=== PATIENT | female | born 1960 | race Caucasian/White ===

== ENCOUNTER 2020-07-04 17:03 | Emergency (ER) | payer BC, OTHER, SELFPAY ==
[2020-07-04 17:04] VITALS: BP 180/104; PULSE 67; RESP 15; TEMP 36.8; O2SAT 99; BMI 44.6
[2020-07-04 17:05] VITALS: BP 180/104; PULSE 67; RESP 15; TEMP 36.8; O2SAT 99
[2020-07-04 19:04] VITALS: PULSE 66
[2020-07-04 19:57] LABS: Absolute Lymphocyte Count 1.82 X10^3/uL (0.83-4.51); Absolute Neutrophil Count 5.2 X10^3/uL (2.0-7.7); Basophil# 0.05 X10^3/uL; Basophil% 0.6 % (0-1); Eosinophil# 0.12 X10^3/uL; Eosinophils% 1.6 % (0-5); Hematocrit 43.5 % (37-47); Hemoglobin 14.4 g/dL (12.0-15.0); Lymphocyte # 1.82 X10^3/ul (0.83-4.51); Lymphocyte % 23.6 % (19-41); Mean Corp Hgb Conc 33.1 g/dL (32-36); Mean Corpuscular Hgb 32.7 pg (27.0-32.0); Mean Corpuscular Volume 98.6 fL (81-99); Mean Platelet Vol. 9.9 fl (6.2-12.0); Monocyte# 0.45 X10^3/uL; Monocyte% 5.8 % (0-10); NRBC Flagged by Analyzer 0 % (0-5); Neutrophil # 5.21 X10^3/uL (2.7-7.7); Neutrophil % 67.6 % (47-70); Platelet Count 304 K/mm3 (150-450); RBC Distribution Width CV 12.9 % (11.6-14.6); RBC Distribution Width SD 46.7 fl (35.1-43.9); Red Blood Count 4.41 M/mm3 (4.2-5.4); White Blood Count 7.7 K/mm3 (4.4-11.0)
[2020-07-04 20:05] VITALS: BP 177/90; PULSE 69; RESP 18; TEMP 36.8; O2SAT 99
[2020-07-04 20:15] LABS: ALB/GLOB Ratio 0.8 RATIO (0.9-2.4); AST(SGOT) 34 U/L (15-37); Alanine Aminotransfer ALT/SGPT 63 U/L (13-56); Albumin, Serum 3.6 g/dL (3.2-5.0); Alkaline Phosphatase 66 U/L (45-117); Anion Gap 7 (5-15); BUN 11 mg/dL (7-18); BUN/Creat Ratio 11.8 RATIO (10-20); Calcium,Total 9.5 mg/dL (8.5-10.1); Chloride 103 mmol/L (98-107); Creatinine, Serum 0.93 mg/dL (0.55-1.02); EST Glomerular Filtration Rate 65 mL/min (>60); Est Glom Filt Rate - Afr Amer 79 mL/min (>60); Estimated Creatinine Clearance 56.24 ml/min; Globulin 4.8 g/dL (2.2-4.2); Glucose 84 mg/dL (74-106); Potassium 4.8 mmol/L (3.5-5.1); Protein, Total 8.4 g/dL (6.4-8.2); Sodium Level 136 mmol/L (136-145)
--- NOTE | 2020-07-04 20:25 | CT_ITS ---
EXAM: CT NECK WITH INTRAVENOUS CONTRAST : 1960 CLINICAL INDICATION: Soy's angina TECHNIQUE: Helically acquired images were obtained of the neck with intravenous contrast. This CT exam was performed using one or more of the following dose reduction techniques: automated exposure control, adjustment of the mA and/or kV according to patient size, and/or use of iterative reconstruction technique. This report was created using [employer] report generation technology. CONTRAST: IV 75mL Isovue-300 COMPARISON: None. FINDINGS: BRAIN AND EXTRA-AXIAL SPACES: There is no mass or fluid collection. NASOPHARYNX: Unremarkable. SUPRAHYOID NECK: Unremarkable. Oropharynx, oral cavity, parapharyngeal space and retropharyngeal space are unremarkable. INFRAHYOID NECK: Unremarkable. The larynx, hypopharynx and supraglottis are unremarkable. SUBMANDIBULAR/PAROTID GLANDS: Unremarkable. Glands are normal in size. THYROID: Unremarkable. No enlarged or calcified nodules. BONES/JOINTS: No acute fracture. SOFT TISSUES: Unremarkable. VASCULATURE: No acute findings. LYMPH NODES: There are small lymph nodes in the submandibular and submental regions. The largest node on the left measures 1.3 x 0.9 cm. LUNG APICES: Unremarkable as visualized. OTHER FINDINGS: There is no edema. CT/Soft Tissue Neck WITH Contrast IMPRESSION: Scattered adenopathy in the neck which may be reactive or inflammatory. There is no mass or fluid collection. The airway is patent. Individualized dose optimization techniques were used for this CT. at 2102 Reported and signed by: Mark Aguilar MD Electronically Signed: Mark Aguilar MD at 21:01 EDT Tel , Service support ,
[2020-07-04 23:40] VITALS: PULSE 87; RESP 16; O2SAT 97
--- NOTE | 2020-07-05 00:54 | EX.ED.DYSGE1 ---
HPI History of Present Illness Chief Complaint: Cellulitis Informant: patient Onset/Context/Timing Onset: Yesterday Context: Gradual Onset Timing: Continuous Quality: Dull Location: Sublingual Worsened by: Nothing Relieved by: Nothing Narrative Narrative: Patient presents with swelling and redness to her jaw that began yesterday. Patient states it is gradually getting worse. Patient states the pain is over the sublingual area. Patient describes the pain is dull. Patient also states it feels like it is itching. Patient states nothing makes it worse and nothing makes it better. Patient denies any difficulty breathing or difficulty swallowing. Patient states she went to an urgent care but was referred to the emergency department. [facility] Medical History Hypertension Home Medications amoxicillin-pot clavulanate 875 mg PO Q12H #20 tablet 07/04/20 [Rx Last Taken Unknown] enalapril maleate [Vasotec] 5 mg PO DAILY 07/04/20 [History Last Taken Unknown] epinephrine 0.3 ml IM PRN PRN 07/04/20 [History Last Taken Unknown] levothyroxine [Synthroid] 150 mcg PO DAILY 07/04/20 [History Last Taken Unknown] Allergy/AdvReac Type Severity Reaction Status Date / Time bee pollen Allergy Anaphylaxis Verified 07/04/20 17:06 Surgical History History of thyroidectomy Social History Smoking Status: Never smoker ROS ROS ED Constitutional Constitutional ED: Denies chills or fever(s) Eyes Eyes: Denies blurry vision or change in vision ENT ENT ED: Denies rhinorrhea or sore throat Cardiovascular Cardiovascular: Denies chest pain or palpitations Respiratory/Chest Respiratory/Chest: Denies cough or dyspnea Gastrointestinal Gastrointestinal: Denies nausea or vomiting Genitourinary Genitourinary ED: Denies dysuria or hematuria Musculoskeletal Musculoskeletal: Reports neck pain; Denies back pain Integumentary Reports rash; Denies Abrasions Neurologic Neurologic: Denies headache(s) or weakness Allergic/Immunologic Allergic/Immunologic ED: Denies urticaria EXAM Physical Exam Const Vital Signs: 07/04/20 17:04 07/04/20 17:05 07/04/20 19:04 Temperature 98.3 F 98.3 F Temperature Source Temporal Temporal Pulse Rate 67 67 66 Respiratory Rate 15 15 Blood Pressure 180/104 H 180/104 H Blood Pressure Mean 129 129 Pulse Ox 99 99 Oxygen Delivery Method Room Air Room Air 07/04/20 20:05 07/04/20 23:40 Temperature 98.2 F Temperature Source Temporal Pulse Rate 69 87 Respiratory Rate 18 16 Blood Pressure 177/90 H Blood Pressure Mean 119 Pulse Ox 99 97 Oxygen Delivery Method Room Air Positive well nourished, well developed and obese General Appearance ED: well developed Nutritional Appearance: obese HEENT Reports moist mucous membranes HEENT Narrative: There are couple dental caries noted over the lower first premolars bilaterally. There is no tenderness. There is no gingival edema or erythema. Oropharynx is clear. Airway is patent. There is no trismus. Neck supple and no JVD Neck Narrative: There is some mild erythema in the sublingual area. There is questionable fullness in this area. There is no induration. There is no evidence of any abscess. Resp normal respiratory effort and clear to auscultation bilaterally Cardio regular rate and regular rhythm GI normal to inspection, nondistended, normoactive bowel sounds and non-tender Palpation: soft Neuro oriented x3, CN's II-XII intact bilaterally and no sensory deficits noted Sensorium / Orientation: alert Motor Exam: strength 5/5 throughout Psych mental status grossly normal MDM MDM MDM Narrative Medical decision making narrative: Patient was given a dose of Unasyn here. CBC and comprehensive metabolic profile were within normal limits. Lactate was normal. CT scan of the soft tissue neck was obtained. There is no evidence of any abscess or airway compromise. There is some mild lymphadenopathy. Patient was advised of her findings. Patient was given a prescription for Augmentin. Patient was instructed to return if worse in any way. Patient was instructed to follow-up with her primary care physician in 3 to 5 days. Patient and spouse understood and were agreeable with the plan. All questions were answered. Lab Data Attestation: I reviewed the patient's lab results. Labs: Laboratory Results - last 24 hr 07/04/20 07/04/20 07/04/20 17:10 19:34 19:34 WBC Cancelled Corrected WBC Cancelled RBC Cancelled Hgb Cancelled Hct Cancelled MCV Cancelled MCH Cancelled MCHC Cancelled RDW Std Deviation Cancelled RDW Coeff of Luis Miguel Cancelled Plt Count Cancelled MPV Cancelled Immature Gran % (Auto) Cancelled Neut % (Auto) Cancelled Lymph % (Auto) Cancelled Brantley % (Auto) Cancelled Eos % (Auto) Cancelled Baso % (Auto) Cancelled Absolute Neuts (auto) Cancelled Absolute Lymphs (auto) Cancelled Total Counted Cancelled Neutrophils % (Manual) Cancelled Band Neutrophils % Cancelled Lymphocytes % (Manual) Cancelled Monocytes % (Manual) Cancelled Eosinophils % (Manual) Cancelled Basophils % (Manual) Cancelled Metamyelocytes % Cancelled Myelocytes % Cancelled Promyelocytes % Cancelled Blast Cells % Cancelled Plasma Cell % (Manual) Cancelled Other Cells % Cancelled Nucleated RBC % Cancelled Nucleated RBCs/100 WBC Cancelled Differential Comment Cancelled Diff Path Review Cancelled Hypersegmented Neuts Cancelled Atypical Lymphocytes Cancelled Reactive Lymphocytes Cancelled Smudge Cells Cancelled Toxic Granulation Cancelled Toxic Vacuolation Cancelled Dohle Bodies Cancelled Дмитрий Rods Cancelled Platelet Estimate Cancelled Plt Morphology Comment Cancelled RBC Morphology Cancelled Polychromasia Cancelled Hypochromasia Cancelled Poikilocytosis Cancelled Basophilic Stippling Cancelled Anisocytosis Cancelled Microcytosis Cancelled Macrocytosis Cancelled Spherocytes Cancelled Sickle Cells Cancelled Target Cells Cancelled Tear Drop Cells Cancelled Ovalocytes Cancelled Stomatocytes Cancelled Razo-Sylvanite Bodies Cancelled Eduar Cells Cancelled Bite Cells Cancelled Crenated Cell Cancelled Acanthocytes (Spur) Cancelled Rouleaux Cancelled Schistocytes Cancelled Sodium 136 Potassium 4.8 Chloride 103 Carbon Dioxide 26.0 Anion Gap 7 BUN 11 Creatinine 0.93 Estim Creat Clear Calc 56.24 Est GFR (MDRD) Af Amer 79 Est GFR (MDRD) Non-Af 65 BUN/Creatinine Ratio 11.8 Glucose 84 Lactic Acid 1.0 Calcium 9.5 Total Bilirubin 0.70 AST 34 ALT 63 H Alkaline Phosphatase 66 Total Protein 8.4 H Albumin 3.6 Globulin 4.8 H Albumin/Globulin Ratio 0.8 L 07/04/20 19:34 WBC 7.7 Corrected WBC RBC 4.41 Hgb 14.4 Hct 43.5 MCV 98.6 MCH 32.7 H MCHC 33.1 RDW Std Deviation 46.7 H RDW Coeff of Luis Miguel 12.9 Plt Count 304 MPV 9.9 Immature Gran % (Auto) 0.800 Neut % (Auto) 67.6 Lymph % (Auto) 23.6 Brantley % (Auto) 5.8 Eos % (Auto) 1.6 Baso % (Auto) 0.6 Absolute Neuts (auto) 5.2 Absolute Lymphs (auto) 1.82 Total Counted Neutrophils % (Manual) Band Neutrophils % Lymphocytes % (Manual) Monocytes % (Manual) Eosinophils % (Manual) Basophils % (Manual) Metamyelocytes % Myelocytes % Promyelocytes % Blast Cells % Plasma Cell % (Manual) Other Cells % Nucleated RBC % 0 Nucleated RBCs/100 WBC Differential Comment Diff Path Review Hypersegmented Neuts Atypical Lymphocytes Reactive Lymphocytes Smudge Cells Toxic Granulation Toxic Vacuolation Dohle Bodies Дмитрий Rods Platelet Estimate Plt Morphology Comment RBC Morphology Polychromasia Hypochromasia Poikilocytosis Basophilic Stippling Anisocytosis Microcytosis Macrocytosis Spherocytes Sickle Cells Target Cells Tear Drop Cells Ovalocytes Stomatocytes Razo-Sylvanite Bodies [place] Cells Bite Cells Crenated Cell Acanthocytes (Spur) Rouleaux Schistocytes Sodium Potassium Chloride Carbon Dioxide Anion Gap BUN Creatinine Estim Creat Clear Calc Est GFR (MDRD) Af Amer Est GFR (MDRD) Non-Af BUN/Creatinine Ratio Glucose Lactic Acid Calcium Total Bilirubin AST ALT Alkaline Phosphatase Total Protein Albumin Globulin Albumin/Globulin Ratio Radiography Diagnostic Testing: Radiology Impression Soft Tissue Neck CT 07/04/20 20:25 IMPRESSION: Scattered adenopathy in the neck which may be reactive or inflammatory. There is no mass or fluid collection. The airway is patent. Individualized dose optimization techniques were used for this CT. at 2102 Reported and signed by: Mark Aguilar MD Electronically Signed: Mark Aguilar MD at 21:01 EDT Tel , Service support , Discharge Plan Triage Chief Complaint: Cellulitis ED Provider: Arnie Hoffman Dx/Rx/DC Orders Clinical Impression: Cellulitis Instructions: ED Cellulitis Prescriptions: New amoxicillin-pot clavulanate [amoxicillin-pot clavulanate] 875 MG tablet 875 mg PO Q12H Qty: 20 RF: 0 No Action enalapril maleate [Vasotec] 5 mg Tablet 5 mg PO DAILY RF: 0 levothyroxine [Synthroid] 150 mcg Tablet 150 mcg PO DAILY RF: 0 epinephrine 0.3 mg/0.3 mL Auto-Injector 0.3 ml IM PRN PRN (Reason: Anaphylaxis) RF: 0 Primary Care Provider: Luciano Holder Referrals: Luciano Holder DO [Primary Care Provider] - 3-5 Days Disposition Disposition: Home, self care Discharge Date/Time: 07/04/20 23:41
== END 2020-07-04 23:41 | disposition home or self-care (01) ==
PROVIDERS: Emergency Provider Emergency Medicine; PCP Student in an Organized Health Care Education/Training Program
DX: K12.2 Cellulitis and abscess of mouth (principal); I10 Essential (primary) hypertension; Z79.899 Other long term (current) drug therapy
CPT/HCPCS: 36415; 70491; 80053; 83605; 85025; 87040; 96365; 99283; J7050; Q9967; A4216; J0295

== ENCOUNTER 2021-01-29 08:11 | Emergency (ER) | payer BC, OTHER, SELFPAY ==
[2021-01-29 08:13] VITALS: BP 186/104; PULSE 89; RESP 14; TEMP 36.6; O2SAT 97; BMI 46.1
--- NOTE | 2021-01-29 08:22 | RAD_ITS ---
STUDY: X-RAY CHEST REASON FOR EXAM: Female, 60 years old. Cp TECHNIQUE: Single AP portable view of the chest. COMPARISON: None. FINDINGS: EKG electrodes are seen. Focal infiltrate in the peripheral lateral aspect of the left upper lobe. There is no demonstrated pleural abnormality. Normal size heart. Normal mediastinum and enzo. Normal visualized pulmonary arteries. There is atherosclerotic tortuosity of the aortic arch and descending thoracic aorta. There are diffuse degenerative changes of the visualized thoracic spine. Normal visualized ribs, clavicles, and shoulders. There is no demonstrated abnormality of the visualized soft tissue structures of the upper abdomen. RAD/Chest 1 View (Portable) IMPRESSION: Focal infiltrate is seen in the lateral aspect of the left upper lobe. Radiographic follow-up is recommended. Electronically Signed: Jaren Owens MD at 9:05 EST , Service support ,
--- NOTE | 2021-01-29 08:23 | EKG12_ITS ---
Test Reason : CHEST OTHER Blood Pressure : / mmHG Vent. Rate : 078 BPM Atrial Rate : 078 BPM P-R Int : 144 ms QRS Dur : 090 ms QT Int : 370 ms P-R-T Axes : 035 -01 039 degrees QTc Int : 421 ms Normal sinus rhythm Normal ECG Confirmed by CARINA ENNIS, JENARO ([id number]), web content editor MAGDI DUNAWAY ([id number]) on 02/03/2021 9:30:48 AM Referred By: BEVERLY Confirmed By:JENARO LIM MD
--- NOTE | 2021-01-29 08:23 | EX.ED.DYSGE1 ---
HPI History of Present Illness Chief Complaint: Chest Other Informant: patient Onset/Context/Timing Onset: Today Current Severity: Mild Maximum Severity: Moderate Narrative Narrative: Patient presents with left back and lateral chest pain. Patient states around 3 AM this morning she woke with pain in the lower portion of her thoracic spine and over the left posterior ribs. Pain is now traveling around the lateral side of her chest. Pain is worse with a deep breath. She does not feel short of breath. No recent URI symptoms or cough. No personal or family history of blood clots. PFSH PFSH Medical History Hypertension no medical history Home Medications enalapril maleate [Vasotec] 5 mg PO DAILY 07/04/20 [History Last Taken Unknown] epinephrine 0.3 ml IM PRN PRN 07/04/20 [History Last Taken Unknown] levothyroxine [Synthroid] 175 mcg PO DAILY 07/04/20 [History Last Taken Unknown] levofloxacin 750 mg PO DAILY #4 tab 01/29/21 [Rx Last Taken Unknown] Allergy/AdvReac Type Severity Reaction Status Date / Time bee pollen Allergy Anaphylaxis Verified 01/29/21 08:16 Surgical History History of thyroidectomy Social History Smoking Status: Never smoker ROS ROS ED Constitutional Constitutional ED: Denies chills or fever(s) Eyes Eyes: Denies change in vision ENT ENT ED: Denies sore throat Cardiovascular Cardiovascular: Reports chest pain Respiratory/Chest Respiratory/Chest: Denies cough or dyspnea Gastrointestinal Gastrointestinal: Denies abdominal pain, diarrhea, nausea or vomiting Genitourinary Genitourinary ED: Denies dysuria Musculoskeletal Musculoskeletal: Reports back pain Integumentary Denies rash Neurologic Neurologic: Denies headache(s) or weakness Allergic/Immunologic Allergic/Immunologic ED: Denies urticaria EXAM Physical Exam Const Vital Signs: 01/29/21 08:13 01/29/21 08:25 01/29/21 08:35 Temperature 97.8 F Temperature Source Temporal Pulse Rate 89 81 Respiratory Rate 14 25 H Respiratory Effort Normal Blood Pressure 186/104 H 166/83 H Blood Pressure Mean 131 110 Pulse Ox 97 96 Oxygen Delivery Method Room Air Room Air Positive well nourished and well developed General Appearance ED: well developed HEENT Reports moist mucous membranes Eyes PERRL and EOMs intact bilaterally Chest Wall inspection of chest normal and palpation of chest normal Resp normal respiratory effort and clear to auscultation bilaterally Cardio regular rate and regular rhythm GI non-tender Palpation: soft Extremity normal to inspection Neuro oriented x3 Sensorium / Orientation: alert Psych mental status grossly normal Skin no rashes or lesions noted MDM MDM MDM Narrative Medical decision making narrative: EKG, chest x-ray, lab work obtained. Lab Data Attestation: I reviewed the patient's lab results. Labs: Laboratory Results - last 24 hr 01/29/21 01/29/21 01/29/21 08:30 08:30 08:30 WBC 9.6 RBC 4.20 Hgb 13.3 Hct 40.2 MCV 95.7 MCH 31.7 MCHC 33.1 RDW Std Deviation 48.6 H RDW Coeff of Luis Miguel 13.9 Plt Count 279 MPV 9.5 Immature Gran % (Auto) 0.700 Neut % (Auto) 74.2 H Lymph % (Auto) 17.2 L [place] % (Auto) 6.3 Eos % (Auto) 1.2 Baso % (Auto) 0.4 Absolute Neuts (auto) 7.1 Absolute Lymphs (auto) 1.66 Nucleated RBC % 0 D-Dimer Quant (PE/DVT) 0.75 H* Sodium 137 Potassium 3.9 Chloride 106 Carbon Dioxide 26.0 Anion Gap 5 BUN 9 Creatinine 0.85 Estim Creat Clear Calc 61.54 Est GFR (MDRD) Af Amer 88 Est GFR (MDRD) Non-Af 72 BUN/Creatinine Ratio 10.6 Glucose 114 H Calcium 9.4 Troponin I High Sens 6 Radiography Chest X-Ray - ED: 1 View, Read by ED Physician and Left Infiltrate Diagnostic Testing: Clinical Impression(s) from Imaging Studies Chest X-Ray 01/29/21 08:22 IMPRESSION: Focal infiltrate is seen in the lateral aspect of the left upper lobe. Radiographic follow-up is recommended. Electronically Signed: Jaren Owens MD at 9:05 EST , Service support , Chest CTA 01/29/21 09:08 IMPRESSION: No evidence of pulmonary embolism. Focal nodular infiltrate in the peripheral lateral aspect of the left upper lobe as described. Radiographic follow-up is recommended following therapy. Electronically Signed: Jaren Owens MD at 9:45 EST , Service support , EKG Initial EKG: Attestation: I personally reviewed and interpreted this EKG as follows: Interpretation: Sinus Rhythm (Sinus at 78 with no acute ischemia.) Treatment and Re-Evaluation Comments:: Chest x-ray shows left-sided wedge-shaped infiltrate. Blood work reviewed and does reveal an elevated D-dimer at 0.75. In light of this CT of the chest is obtained that confirms infiltrate but no evidence of embolism. EKG reveals no ischemia and troponin is negative. Test results discussed with patient and at bedside. She will be treated with a course of Levaquin. Return instructions provided. Discharge Plan Triage Chief Complaint: Chest Other ED Provider: Divina Mcguire Dx/Rx/DC Orders Clinical Impression: Pneumonia Instructions: ED Pneumonia (Adult) Prescriptions: New levofloxacin 750 mg tablet 750 mg PO DAILY Qty: 4 RF: 0 No Action enalapril maleate [Vasotec] 5 mg Tablet 5 mg PO DAILY RF: 0 levothyroxine [Synthroid] 150 mcg Tablet 175 mcg PO DAILY RF: 0 epinephrine 0.3 mg/0.3 mL Auto-Injector 0.3 ml IM PRN PRN (Reason: Anaphylaxis) RF: 0 Primary Care Provider: Luciano Holder Referrals: Luciano Holder DO [Primary Care Provider] - 1-2 Weeks Disposition Disposition: Home, Self Care
[2021-01-29 08:25] VITALS: BP 166/83; PULSE 81; RESP 25; O2SAT 96
[2021-01-29 08:47] LABS: Absolute Lymphocyte Count 1.66 X10^3/uL (0.83-4.51); Absolute Neutrophil Count 7.1 X10^3/uL (2.0-7.7); Basophil# 0.04 X10^3/uL; Basophil% 0.4 % (0-1); Eosinophil# 0.12 X10^3/uL; Eosinophils% 1.2 % (0-5); Hematocrit 40.2 % (37-47); Hemoglobin 13.3 g/dL (12.0-15.0); Lymphocyte # 1.66 X10^3/ul (0.83-4.51); Lymphocyte % 17.2 % (19-41); Mean Corp Hgb Conc 33.1 g/dL (32-36); Mean Corpuscular Hgb 31.7 pg (27.0-32.0); Mean Corpuscular Volume 95.7 fL (81-99); Mean Platelet Vol. 9.5 fl (6.2-12.0); Monocyte# 0.61 X10^3/uL; Monocyte% 6.3 % (0-10); NRBC Flagged by Analyzer 0 % (0-5); Neutrophil # 7.13 X10^3/uL (2.7-7.7); Neutrophil % 74.2 % (47-70); Platelet Count 279 K/mm3 (150-450); RBC Distribution Width CV 13.9 % (11.6-14.6); RBC Distribution Width SD 48.6 fl (35.1-43.9); White Blood Count 9.6 K/mm3 (4.4-11.0)
[2021-01-29 08:55] LABS: D-Dimer Quantitative (DVT/PE) 0.75 FEU/ug/m (0.27-0.49)
[2021-01-29 08:59] LABS: Anion Gap 5 (5-15); BUN 9 mg/dL (7-18); BUN/Creat Ratio 10.6 RATIO (10-20); Calcium,Total 9.4 mg/dL (8.5-10.1); Chloride 106 mmol/L (98-107); Creatinine, Serum 0.85 mg/dL (0.55-1.02); EST Glomerular Filtration Rate 72 mL/min (>60); Est Glom Filt Rate - Afr Amer 88 mL/min (>60); Estimated Creatinine Clearance 61.54 ml/min; Glucose 114 mg/dL (74-106); Potassium 3.9 mmol/L (3.5-5.1); Sodium Level 137 mmol/L (136-145); Troponin-I HS 6 pg/mL (3.0-54.0)
--- NOTE | 2021-01-29 09:08 | CT_ITS ---
STUDY: CTA CHEST REASON FOR EXAM: Female, 60 years old. CP, elevated d-dimer RADIATION DOSAGE (If Supplied By Facility): CTDIvol = ( 11.47 ) mGy, DLP = ( 494.74 ) mGycm TECHNIQUE: The examination was performed with the intravenous administration of IV 100mL Isovue-370. Post-processing of the angiographic images was performed, with multiplanar reformation and 3D reconstruction. Individualized dose optimization techniques were used for this CT. COMPARISON: Comparison is made with prior chest radiograph done earlier today. FINDINGS: Normal enhancement of the main pulmonary artery and right and left pulmonary arteries. Normal enhancement of the bilateral peripheral pulmonary arteries. There is no demonstrated pulmonary embolism. Normal thoracic aorta and visualized great vessels. There is no demonstrated aortic dissection. Normal heart and pericardium. There are visualized mediastinal lymph nodes, which are within normal size limits, and with normal morphology. Normal hilar regions. Normal visualized trachea and bronchi. The lungs are well expanded. There is a 3.6 cm x 3.3 cm x 3.1 cm pleural-based nodular density in the peripheral lateral aspect of the left upper lobe as seen on axial image #146 and coronal image #121. This most likely represents an area of the inflammation although a neoplastic process cannot be ruled out. Follow-up examination following treatment is recommended. Normal pleura. Normal chest wall structures. There are degenerative changes of thoracic spine. Normal visualized upper abdomen. CT/CTA Chest W/WO Contrast IMPRESSION: No evidence of pulmonary embolism. Focal nodular infiltrate in the peripheral lateral aspect of the left upper lobe as described. Radiographic follow-up is recommended following therapy. Electronically Signed: Jaren Owens MD at 9:45 EST , Service support ,
[2021-01-29 10:25] VITALS: BP 161/85; PULSE 72; RESP 24; O2SAT 97
[2021-01-29] MEDS: levoFLOXacin 750 MG Tablet PO (10:26)
== END 2021-01-29 10:33 | disposition home or self-care (01) ==
PROVIDERS: Emergency Provider Emergency Medicine; PCP Student in an Organized Health Care Education/Training Program
DX: J18.9 Pneumonia, unspecified organism (principal); I10 Essential (primary) hypertension; E89.0 Postprocedural hypothyroidism; Z79.890 Hormone replacement therapy; Z79.899 Other long term (current) drug therapy
CPT/HCPCS: 71045; 71275; 80048; 84484; 85025; 85379; 93005; 99285; Q9967; A4216